=== PATIENT | male | born 1950 | race Caucasian/White ===

== ENCOUNTER 2025-05-31 07:21 | Outpatient (CLI) | payer OTHER, SELFPAY ==
--- NOTE | 2025-05-31 07:49 | CT_ITS ---
WS: [id number] LDCT LUNG CANCER SCREENING HISTORY: NICOTINE DEPENDENCE, SCREENING TECHNIQUE: Axial imaging performed from the apices to 1 cm below the costophrenic angles. Coronal and sagittal reformats are submitted with axial MIP series. All CT scans at [facility] use at least one of these dose optimization techniques: automated exposure control; mA and/or kV adjustment per patient size (includes targeted exams where dose is matched to clinical indication); or iterative reconstruction. DLP: 57.07 mGy.cm DIvol: Mean CTDIvol: 0.80 (mGy) COMPARISON: None available. Diagnostic quality: Satisfactory Lungs: Moderate bilateral apical pleural thickening and scarring. Pleural-based opacification with scarring and tethering and traction bronchiectasis in the RIGHT upper lobe. Mild peripheral interstitial thickening. There are few tiny micronodules noted bilaterally in the periphery. Thick walled cavitation in the RIGHT upper lobe within the parenchymal scarring measuring 2.0 x 2.1 cm. Heart: Normal size heart with no pericardial effusion.. Other findings: Mild atherosclerosis aorta. No pathologically enlarged mediastinal or hilar lymph nodes. Normal size pulmonary artery. No adrenal mass. CT/CT lung screening [id number] IMPRESSION: LUNG-RADS: 2S-Benign Appearance or Behavior with Significant Findings FOLLOW UP: 12 Month: Continue annual screening with LDCT OTHER FINDINGS (S MODIFIER): Pleural-parenchymal scarring traction bronchiectas is and thick walled bleb RIGHT upper lobe.
== END 2025-05-31 07:22 | disposition home or self-care (01) ==
LOC: RAD 07:25
PROVIDERS: Visit Provider Family Medicine Geriatric Medicine
DX: Z87.891 Personal history of nicotine dependence (principal)
CPT/HCPCS: 71271